=== PATIENT | female | born 1995 | race Caucasian/White ===

== ENCOUNTER 2019-03-01 17:22 | Emergency (ER) | payer OTHER ==
[~2019-03-01] VITALS: Ht 165.1 cm; Wt 57.7 kg
[2019-03-01 17:29] VITALS: BP 113/76
--- NOTE | 2019-03-01 17:36 | NUR ---
PT AMBULATED TO LOBBY AT THIS TIME. VSS. RR EVEN AND NON-LABORED, BREATH SOUNDS CLEAR, NO ACUTE SIGNS OF DISTRESS.
--- NOTE | 2019-03-01 18:05 | NUR ---
Patient ambulated to bed 3. RN evaluating patient at bedside.
--- NOTE | 2019-03-01 18:25 | NUR ---
PT BIB SELF TO THE ED WITH THE CHIEF C/O TINGLING SENSATION ON TONGUE SINCE YESTERDAY. ALSO REPORTS COUGH WITH PHLEGM FOR 3 WEEKS. NO BLOOD IN COUGH. DENIES FEVER. LUNGS CLEAR ON AUSCULTATION. DENIES N/V. ABDOMEN SOFT, ROUND AND NON-TENDER. ACYIVE BOWEL SOUND. REPORTS DIARRHEA X2 YESTERDAY. NO BLOOD IN DIARRHEA. REPORTS LOWER BACK PAIN 5/10. DENIES BURNING URINATION.
--- NOTE | 2019-03-01 19:14 | NUR ---
REPORT GIVEN TO [employer] DEVICE SCIENTIST RN. PT STABLE.
--- NOTE | 2019-03-01 19:15 | NUR ---
PT LAYING IN BED, RR EVEN AND UNLABORED. ALL NEEDS MET AT THIS TIME.
--- NOTE | 2019-03-01 19:30 | NUR ---
DR ORTIZ AT BEDSIDE FOR MSE
[2019-03-01 19:39] LABS: APPEARANCE,URINE CLEAR (CLEAR); BILIRUBIN,URINE 2+ (NEGATIVE); BLOOD, URINE NEGATIVE (NEGATIVE); COLOR,URINE YELLOW (YELLOW); LEUKOCYTE ESTERASE ,URINE TRACE (NEGATIVE); NITRITE, URINE NEGATIVE (NEGATIVE); UGLUCOSE NEGATIVE (NEGATIVE)
[2019-03-01 20:02] LABS: RBC,URINE 0-5 /HPF (0-5)
--- NOTE | 2019-03-01 20:23 | NUR ---
PELVIC EXAM WITH WET MOUNT SET UP
--- NOTE | 2019-03-01 20:30 | NUR ---
PT TAKEN TO XR
--- NOTE | 2019-03-01 20:48 | NUR ---
PT BACK FROM XR
--- NOTE | 2019-03-01 21:45 | NUR ---
DR ORTIZ AT BEDSIDE FOR PELVIC EXAM WITH FEMALE CHAPPERONE
--- NOTE | 2019-03-01 22:21 | NUR ---
PT LAYING IN BED, TALKING ON PHONE, RR EVEN AND UNLABORED. VSS. ALL NEEDS MET.
[2019-03-01 22:32] VITALS: BP 114/74
--- NOTE | 2019-03-01 22:32 | NUR ---
Patient discharged with v/s stable. Written and verbal after care instructions given and explained. Patient alert, oriented and verbalized understanding of instructions. Ambulatory with steady gait. All questions addressed prior to discharge. ID band removed. Patient advised to follow up with PMD. Rx of DOXYCYCLINE, PENICILLIN, SUPRAX given. Patient educated on indication of medication including possible reaction and side effects. Opportunity to ask questions provided and answered.
[2019-03-05 06:07] LABS: CHLAMYDIA TRACHOMATIS AMP DNA Negative (Negative)
== END 2019-03-01 22:32 | disposition home or self-care (01) ==
LOC: MED 17:22
DX: J02.0 Streptococcal pharyngitis (principal); N73.9 Female pelvic inflammatory disease, unspecified; R05 Cough; R19.7 Diarrhea, unspecified
CPT/HCPCS: 36415; 71046; 81001; 81025; 87081; 87086; 87210; 87491; 99284

== ENCOUNTER 2019-04-07 16:11 | Emergency (ER) | payer OTHER ==
[~2019-04-07] VITALS: Ht 165.1 cm; Wt 54.9 kg
[2019-04-07 16:30] VITALS: BP 117/83
[2019-04-07 18:02] VITALS: BP 120/68
== END 2019-04-07 18:01 | disposition home or self-care (01) ==
LOC: MED 16:11
DX: S40.861A Insect bite (nonvenomous) of right upper arm, initial encounter (principal); R21 Rash and other nonspecific skin eruption; R05 Cough; L29.9 Pruritus, unspecified; F17.200 Nicotine dependence, unspecified, uncomplicated; W57.XXXA Bitten or stung by nonvenomous insect and other nonvenomous arthropods, initial encounter; Y93.89 Activity, other specified; Y92.89 Other specified places as the place of occurrence of the external cause; Y99.8 Other external cause status
CPT/HCPCS: 81025; 99283